=== PATIENT | female | born 1970 | race Caucasian/White ===

== ENCOUNTER 2016-11-21 21:26 | Emergency (ER) | payer BC ==
[2016-11-21] MEDS ORDERED: ASPIRIN 81 MG TABLET, CHEWABLE PO ONE (21:57)
--- NOTE | 2016-11-21 21:57 | ER Document Report ---
ED Medical Screen (RME) - General Stated Complaint: CHEST PAIN Time seen by provider: 21:54 Mode of Arrival: Wheelchair Information source: Patient Notes: 46-year-old female presents to ED for chest pain the last couple days today the pains are worse and will not go away and they're going down both shoulders. She has a history of cardiac catheter with stents 3. Her last cardiac catheter was September 2013. She states she's had one 81 mg aspirin this morning and she's had 3 nitroglycerin sprays last one was at 2030. I have greeted and performed a rapid initial assessment of this patient. A comprehensive ED assessment and evaluation of the patient, analysis of test results and completion of medical decision making process will be conducted by an additional ED providers. TRAVEL OUTSIDE OF THE [place] IN LAST 30 DAYS: No - Related Data Allergies/Adverse Reactions: atropine [Atropine] Allergy (Severe, Verified 05/25/15 12:18) Hives Past Medical History - Past Medical History Cardiac Medical History: Reports: Hx Coronary Artery Disease, Hx Heart Attack - x4, Hx Hypercholesterolemia, Hx Hypertension Pulmonary Medical History: Reports: Hx Asthma, Hx Bronchitis, Hx COPD Endocrine Medical History: Reports: Hx Diabetes Mellitus Type 2 Skin Medical History: Reports Hx Cellulitis Past Surgical History: Reports: Hx Cardiac Catheterization - stent x3 LAD, Proximal LAD, Hx Orthopedic Surgery - bilateral knee, right wrist, Hx Tonsillectomy - Immunizations Immunizations up to date: Yes Hx Diphtheria, Pertussis, Tetanus Vaccination: Yes
[2016-11-21 21:59] VITALS: BP 150/81
[2016-11-21 22:24] LABS: ABSOLUTE BASOPHILS # (AUTO) 0.1 10^3/uL (0.0-0.2); ABSOLUTE EOSINOPHILS # (AUTO) 0.1 10^3/uL (0.0-0.6); ABSOLUTE LYMPHOCYTES (AUTO) 2.5 10^3/uL (0.5-4.7); ABSOLUTE MONOCYTES (AUTO) 0.6 10^3/uL (0.1-1.4); ABSOLUTE NEUT (AUTO) 5.6 10^3/uL (1.7-8.2); EOSINOPHILS % (AUTO) 0.9 % (0-6); HEMATOCRIT 48.1 % (36.0-47.0); HEMOGLOBIN 16.5 g/dL (12.0-15.5); HGB HCT DIFFERENCE 1.4; LYMPHOCYTES % (AUTO) 28.2 % (13-45); MEAN CORPUSCULAR HEMOGLOBIN 31.5 pg (27.0-33.4); MEAN CORPUSCULAR HGB CONC 34.4 g/dL (32.0-36.0); MEAN CORPUSCULAR VOLUME 92 fl (80-97); MONOCYTES % (AUTO) 6.8 % (3-13); RED BLOOD COUNT 5.24 10^6/uL (3.72-5.28); RED CELL DISTRIBUTION WIDTH 12.9 % (11.5-14.0); SEGMENTED NEUTROPHILS % (AUTO) 63.1 % (42-78); WHITE BLOOD COUNT 8.8 10^3/uL (4.0-10.5)
[2016-11-21 22:33] LABS: PROTHROMBIN TIME 11.6 SEC (11.4-15.4)
[2016-11-21 22:34] LABS: PARTIAL THROMBOPLASTIN TIME 29.7 SEC (23.5-35.8)
[2016-11-21 22:40] LABS: ALANINE AMINOTRANSFERASE 33 U/L (9-52); ALBUMIN 4.2 g/dL (3.5-5.0); ALKALINE PHOSPHATASE 133 U/L (38-126); ANION GAP 15 (5-19); ASPARTATE AMINO TRANSFERASE 19 U/L (14-36); BILIRUBIN,DIRECT 0.2 mg/dL (0.0-0.4); BILIRUBIN,TOTAL 0.8 mg/dL (0.2-1.3); BLOOD UREA NITROGEN 11 mg/dL (7-20); CALCIUM 9.7 mg/dL (8.4-10.2); CARBON DIOXIDE 21 mmol/L (22-30); CHLORIDE 96 mmol/L (98-107); CREATINE KINASE 26 U/L (30-135); CREATININE RESULT 0.63 mg/dL (0.52-1.25); MAGNESIUM 1.6 mg/dL (1.6-2.3); POTASSIUM 4.1 mmol/L (3.6-5.0); TOTAL PROTEIN 6.8 g/dL (6.3-8.2)
[2016-11-21 22:48] LABS: GLUCOSE 531 mg/dL (75-110)
[2016-11-21 22:53] LABS: CREATINE KINASE MB < 0.22 ng/mL (<4.55); TROPONIN I < 0.012 ng/mL
--- NOTE | 2016-11-22 10:55 | EKG REPORT ---
SEVERITY:- ABNORMAL ECG - SINUS RHYTHM PROBABLE LEFT ATRIAL ABNORMALITY CONSIDER ANTEROSEPTAL INFARCT : Confirmed by: Addie Carlson 22-Nov-2016 10:54:35
== END 2016-11-21 23:25 | disposition left against medical advice (07) ==
LOC: ER 21:26
DX: R07.9 Chest pain, unspecified (principal); I25.10 Atherosclerotic heart disease of native coronary artery without angina pectoris; I25.2 Old myocardial infarction; J44.9 Chronic obstructive pulmonary disease, unspecified; I10 Essential (primary) hypertension; E11.9 Type 2 diabetes mellitus without complications; Z88.8 Allergy status to other drugs, medicaments and biological substances; Z98.61 Coronary angioplasty status; Z53.20 Procedure and treatment not carried out because of patient's decision for unspecified reasons
CPT/HCPCS: 36415; 71020; 80053; 82550; 82553; 83735; 84484; 85025; 85610; 85730; 93005; 93010; 99281

== ENCOUNTER 2017-10-09 09:14 | Emergency (ER) | payer BC ==
[2017-10-09] MEDS ORDERED: ACETAMINOPHEN 325 MG TABLET PO ONE (09:16)
--- NOTE | 2017-10-09 10:03 | ER Document Report ---
HPI - HPI Pain Level: 5 Notes: Patient is a 47-year-old female who presents the ED complaining of right distal index finger pain status post crush injury prior to arrival. Patient states that she got her finger caught in the car door. Patient states that she placed ice on it immediately. Patient has noticed some swelling and bruising to the distal finger. Patient is still able to move her finger, but is not able to flex all the way at the DIP joint due to swelling. 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 No other concerns or complaints at this time. Patient admits to smoking but denies IV drug use. Denies any headache, fever, head injury, neck pain, chest pain, palpitations, syncope, cough, shortness of breath, wheeze, dyspnea, abdominal pain, nausea/vomiting/diarrhea, urinary retention, dysuria, hematuria, numbness/ tingling, muscle paralysis/weakness, or rash. - ROS Systems Reviewed and Negative: Yes All other systems reviewed and negative - CONSTITUTIONAL Constitutional: DENIES: Fever, Chills - REPRODUCTIVE Reproductive: DENIES: : - MUSCULOSKELETAL Musculoskeletal: REPORTS: Extremity pain - right pointer finger Past Medical History - Social History Smoking Status: Current Every Day Smoker Frequency of alcohol use: Rare Drug Abuse: None Family History: CAD, CVA, DM, Hyperlipidemia, Hypertension, Malignancy Patient has suicidal ideation: No Patient has homicidal ideation: No - Past Medical History Cardiac Medical History: Reports: Hx Coronary Artery Disease, Hx Heart Attack - x6, Hx Hypercholesterolemia, Hx Hypertension Pulmonary Medical History: Reports: Hx Asthma, Hx Bronchitis, Hx COPD Endocrine Medical History: Reports: Hx Diabetes Mellitus Type 2 Renal/ Medical History: Denies: Hx Peritoneal Dialysis Skin Medical History: Reports Hx Cellulitis Past Surgical History: Reports: Hx Cardiac Catheterization - stent x3 LAD, Proximal LAD, Hx Hysterectomy, Hx Orthopedic Surgery - bilateral knee, right wrist, Hx Tonsillectomy - Immunizations Immunizations up to date: Yes Hx Diphtheria, Pertussis, Tetanus Vaccination: Yes Vertical Provider Document - CONSTITUTIONAL Agree With Documented VS: Yes Notes: PHYSICAL EXAMINATION: GENERAL: Well-appearing, well-nourished and in no acute distress. LUNGS: Breath sounds clear to auscultation bilaterally and equal. No wheezes rales or rhonchi. HEART: Regular rate and rhythm without murmurs, rubs, gallops. Musculoskeletal: Rt index: LROM to passive/active. Strength 4+/5. + ecchymosis noted distal rosalinda/posterior. No bruising under the nail noted. No laceration or opening to the skin. + tenderness to the distal phalange as well as the DIP. No other tenderness to the hand. No other deficits noted. N/V intact distal. Extremities: No cyanosis, clubbing, or edema b/l. Peripheral pulses 2+. Capillary refill less than 3 seconds. NEUROLOGICAL: Normal speech, normal gait. Normal sensory, motor exams PSYCH: Normal mood, normal affect. SKIN: Warm, Dry, normal turgor, no rashes or lesions noted. - INFECTION CONTROL TRAVEL OUTSIDE OF THE [place] IN LAST 30 DAYS: No - RESPIRATORY O2 Sat by Pulse Oximetry: 98 Course - Re-evaluation Re-evalutation: 10/09/17 10:30 Patient is an afebrile, well-hydrated, 47-year-old female who presents to the ED with a contusion to her right index finger. Vitals are stable. PE is otherwise unremarkable for any neurovascular compromise, obvious tendon/ ligament rupture, obvious fracture/dislocation, septic joint. X-ray was unremarkable for any acute pathology. Metal finger splint applied today. Conservative measures for symptoms. Patient had Tylenol upon arrival. Recheck with your PCM in 3-5 days. Consider consult with orthopedics/physical therapy. Return to the ED with any worsening/concerning symptoms otherwise as reviewed discharge. Patient is in agreement. - Vital Signs Vital signs: Temp Pulse Resp BP Pulse Ox 97.6 F 79 16 135/89 H 98 10/09/17 09:28 10/09/17 09:28 10/09/17 09:28 10/09/17 09:28 10/09/17 09:28 Discharge - Discharge Clinical Impression: Finger contusion Qualifiers: Encounter type: initial encounter Finger: index finger Damage to nail status: without damage Laterality: right Qualified Code(s): S60.021A - Contusion of right index finger without damage to nail, initial encounter Condition: Stable Disposition: HOME, SELF-CARE Instructions: Contusion ([facility]) Additional Instructions: Rest, Ice, Compression, Elevation Use splint as directed Tylenol/ibuprofen as needed Light stretches daily Strength exercises as able Moist heat and massage may help F/u with your PCP in 3-5 days for a recheck Consider consult(s) with Orthopedics/physical therapy for ongoing/worsening symptoms Return to the ED with any worsening symptoms and/or development of fever, headache, chest pain, palpitations, syncope, shortness of breath, trouble breathing, abdominal pain, n/v/d, muscle weakness/paralysis, numbness/tingling, swelling, redness, or other worsening symptoms that are concerning to you. Forms: Elevated Blood Pressure Referrals: DENY AMAYA MD [Primary Care Provider] - Follow up as needed [facility] [Provider Group] - Follow up as needed
--- NOTE | 2017-10-09 10:17 | RADIOLOGY REPORT (SQ) ---
EXAM DESCRIPTION: HAND RIGHT 3 VIEWS COMPLETED DATE/TIME: 10/09/2017 10:02 am REASON FOR STUDY: 2nd digit pain s/p crush injury COMPARISON: None. EXAM PARAMETERS: NUMBER OF VIEWS: Three views. TECHNIQUE: AP, lateral and oblique radiographic images acquired of the right hand. LIMITATIONS: None. FINDINGS: MINERALIZATION: Normal. BONES: No acute fracture or dislocation. No worrisome bone lesions. JOINTS: No effusions. SOFT TISSUES: No soft tissue swelling. No foreign body. OTHER: No other significant finding. IMPRESSION: NEGATIVE STUDY OF THE RIGHT HAND. NO RADIOGRAPHIC EVIDENCE OF ACUTE INJURY. TECHNICAL DOCUMENTATION: JOB ID: [id number] [employer]- All Rights Reserved
[2017-10-09 11:04] VITALS: BP 113/77
== END 2017-10-09 11:05 | disposition home or self-care (01) ==
LOC: ER 09:14
DX: S60.021A Contusion of right index finger without damage to nail, initial encounter (principal); W23.0XXA Caught, crushed, jammed, or pinched between moving objects, initial encounter; Y93.89 Activity, other specified; I25.10 Atherosclerotic heart disease of native coronary artery without angina pectoris; I25.2 Old myocardial infarction; Z79.01 Long term (current) use of anticoagulants; F17.200 Nicotine dependence, unspecified, uncomplicated; I10 Essential (primary) hypertension; J44.9 Chronic obstructive pulmonary disease, unspecified; E11.9 Type 2 diabetes mellitus without complications; Z95.5 Presence of coronary angioplasty implant and graft
CPT/HCPCS: 99283

== ENCOUNTER 2018-04-04 22:23 | Emergency (ER) | payer BC ==
[2018-04-04 22:28] VITALS: BP 166/85
[2018-04-04] MEDS ORDERED: CLINDAMYCIN HCL 150 MG CAPSULE PO ONE (22:59)
--- NOTE | 2018-04-04 23:04 | ER Document Report ---
ED General - General Chief Complaint: Wound Infection Stated Complaint: ABSCESS Time Seen by Provider: 04/04/18 22:52 Notes: Patient is a 47-year-old female who presents with complaint of a blister that has scabbed become infected. Patient says that she gets small of blood blisters over her hands that she has had off and on ever since she was on blood thinners. She says is been ongoing for 7 years. She says that she was recently taken off blood thinners now and is on aspirin but still occasionally gets some. She does never get any oral lesions. Said when the blood blister started open and scabbed and then now she thinks may be infected. She said a few days ago she did have worsening erythema but seems to improving slightly. She says that after ruptured she is placing Neosporin and tea tree oil on it. She said since and it has just scabbed and is not significantly. Blisters over the left hand. No fevers. No purulent discharge. TRAVEL OUTSIDE OF THE [place] IN LAST 30 DAYS: No - Related Data Allergies/Adverse Reactions: atropine [Atropine] Allergy (Severe, Verified 05/25/15 12:18) Hives Past Medical History - Social History Smoking Status: Current Every Day Smoker Chew tobacco use (# tins/day): No Frequency of alcohol use: None Drug Abuse: None Family History: CAD, CVA, DM, Hyperlipidemia, Hypertension, Malignancy Patient has suicidal ideation: No Patient has homicidal ideation: No - Past Medical History Cardiac Medical History: Reports: Hx Coronary Artery Disease, Hx Heart Attack - x6, Hx Hypercholesterolemia, Hx Hypertension Pulmonary Medical History: Reports: Hx Asthma, Hx Bronchitis, Hx COPD Endocrine Medical History: Reports: Hx Diabetes Mellitus Type 2 Renal/ Medical History: Denies: Hx Peritoneal Dialysis Skin Medical History: Reports Hx Cellulitis Past Surgical History: Reports: Hx Cardiac Catheterization - stent x3 LAD, Proximal LAD, Hx Hysterectomy, Hx Orthopedic Surgery - bilateral knee, right wrist, Hx Tonsillectomy - Immunizations Immunizations up to date: Yes Hx Diphtheria, Pertussis, Tetanus Vaccination: Yes Review of Systems - Review of Systems Notes: My Normal Review Basic REVIEW OF SYSTEMS: CONSTITUTIONAL : Denies fever, chills, or sweats. Denies recent illness. EENT: Denies eye, ear, throat, or mouth pain or symptoms. Denies nasal or sinus congestion. MUSCULOSKELETAL: Denies neck or back pain or joint pain or swelling. SKIN: Infected blister. NEUROLOGICAL: Denies sensory or motor loss. ALL OTHER SYSTEMS REVIEWED AND NEGATIVE. Physical Exam - Vital signs Vitals: Temp Pulse Resp BP Pulse Ox 98.1 F 81 18 166/85 H 97 04/04/18 22:27 04/04/18 22:27 04/04/18 22:27 04/04/18 22:27 04/04/18 22:27 - Notes Notes: General Appearance: Well nourished, alert, cooperative, no acute distress, no obvious discomfort. Vitals: reviewed, See vital signs table. Mouth: No decreasd moisture Extremities: no swelling or tenderness in the extremities except for scabbed over lesion small amount of surrounding erythema on the radial aspect the base of the right thumb and dorsum of hand. Lesion is not fluctuant. It is. To have granulated and scabbed. Skin: warm, dry, appropriate color, no rash. Several small red palpable purpuric type lesions on dorsum of hands that are palpable and non-blanchable. No oral lesions. Neuro: speech clear, oriented x 3, normal affect, responds appropriately to questions. Course - Re-evaluation Re-evalutation: 04/04/18 23:08 Patient has what appears to be a lesion that turned into an open sore which has been treated multiple times with bacitracin and tea tree oil and other things have caused it to granulate in scab and not heal properly. Does have some surrounding erythema. Probably is a small amount of so she is secondary infection. I will place her on antibiotics and I talked her length about avoiding any other chemicals on other than just normal soap and water. Encourage her follow-up closely with primary care doctor. Also talked her length about small red lesions on her hands. I informed her that I am not convinced this is from blood thinners alone however the patient said she has been having them for 7 years ever since she had blood thinners. She says that her doctor sure if that that is what these lesions are. I informed her if they do an increase in number or size and she should talk to her doctor about potentially following up with a clinical sociologist. Patient agrees with plan and will be discharged home. Dictation of this chart was performed using voice recognition software; therefore, there may be some unintended grammatical errors. - Vital Signs Vital signs: Temp Pulse Resp BP Pulse Ox 98.1 F 81 18 166/85 H 97 04/04/18 22:27 04/04/18 22:27 04/04/18 22:27 04/04/18 22:27 04/04/18 22:27 Discharge - Discharge Clinical Impression: Wound infection Condition: Good Disposition: HOME, SELF-CARE Additional Instructions: Please clean the affected area with soap and water daily. Refrain from using peroxide, Neosporin, or tea tree oil for now so that the wound has time to epithelialize. Follow up with your doctor in 2-3 days for reevaluation. return to the ER immediately if you develop spreading redness, fevers, increasing swelling, or have any further concerns. Prescriptions: Clindamycin HCl 300 mg PO ASDIR #56 capsule Referrals: DENY AMAYA MD [Primary Care Provider] - 04/06/18
== END 2018-04-04 23:25 | disposition home or self-care (01) ==
LOC: ER 22:23
DX: S60.522A Blister (nonthermal) of left hand, initial encounter (principal); L08.9 Local infection of the skin and subcutaneous tissue, unspecified; X58.XXXA Exposure to other specified factors, initial encounter; E11.9 Type 2 diabetes mellitus without complications; F17.200 Nicotine dependence, unspecified, uncomplicated; I25.10 Atherosclerotic heart disease of native coronary artery without angina pectoris; I10 Essential (primary) hypertension; I25.2 Old myocardial infarction; J44.9 Chronic obstructive pulmonary disease, unspecified; Z95.5 Presence of coronary angioplasty implant and graft; Z79.82 Long term (current) use of aspirin; Z88.8 Allergy status to other drugs, medicaments and biological substances
CPT/HCPCS: 99282

== ENCOUNTER 2018-04-22 06:49 | Emergency (ER) | payer BC ==
--- NOTE | 2018-04-22 07:26 | RADIOLOGY REPORT (SQ) ---
EXAM DESCRIPTION: XR ANKLE 2 VIEWS COMPLETED DATE/TME: 04/22/2018 00:00 CLINICAL HISTORY: 47 years Female, tripped and twisted r ankle COMPARISON: None. Findings: Mild osteoarthritis involves the medial malleolus and fifth tarsometatarsal joints. Bones, joints, and soft tissues of the RIGHT XR ANKLE 2 VIEWS appear otherwise intact. IMPRESSION: No acute findings.
--- NOTE | 2018-04-22 07:52 | ER Document Report ---
ED General - General Chief Complaint: Ankle Injury Stated Complaint: ANKLE PAIN Time Seen by Provider: 04/22/18 07:40 TRAVEL OUTSIDE OF THE [place] IN LAST 30 DAYS: No - HPI Patient complains to provider of: foot and ankle pain Notes: 47-year-old female presents with right ankle and foot pain 10/10 sharp in nature without radiation. Patient was at a friend's house last night was walking stepped in some sort of whole in her lawn and forcefully everted her right foot. Patient has pain over her lateral malleolus along with inferior aspect of foot and midfoot. Nothing is made the pain better or worse - Related Data Allergies/Adverse Reactions: atropine [Atropine] Allergy (Severe, Verified 05/25/15 12:18) Hives Past Medical History - Social History Smoking Status: Current Every Day Smoker Chew tobacco use (# tins/day): No Frequency of alcohol use: None Drug Abuse: None Family History: CAD, CVA, DM, Hyperlipidemia, Hypertension, Malignancy Patient has suicidal ideation: No Patient has homicidal ideation: No - Past Medical History Cardiac Medical History: Reports: Hx Coronary Artery Disease, Hx Heart Attack - x6, Hx Hypercholesterolemia, Hx Hypertension Pulmonary Medical History: Reports: Hx Asthma, Hx Bronchitis, Hx COPD Endocrine Medical History: Reports: Hx Diabetes Mellitus Type 2 Renal/ Medical History: Denies: Hx Peritoneal Dialysis Skin Medical History: Reports Hx Cellulitis Past Surgical History: Reports: Hx Cardiac Catheterization - stent x3 LAD, Proximal LAD, Hx Hysterectomy, Hx Orthopedic Surgery - bilateral knee, right wrist, Hx Tonsillectomy - Immunizations Immunizations up to date: Yes Hx Diphtheria, Pertussis, Tetanus Vaccination: Yes Review of Systems - Review of Systems Notes: REVIEW OF SYSTEMS: CONSTITUTIONAL: -fevers, -chills EENT: -eye pain, -difficulty swallowing, -nasal congestion CARDIOVASCULAR: -chest pain, -syncope. RESPIRATORY: -cough, -SOB GASTROINTESTINAL: -abdominal pain, -nausea, -vomiting, -diarrhea GENITOURINARY: -dysuria, -hematuria MUSCULOSKELETAL: -back pain, -neck pain SKIN: -rash or skin lesions. HEMATOLOGIC: -easy bruising or bleeding. LYMPHATIC: -swollen, enlarged glands. NEUROLOGICAL: -altered mental status or loss of consciousness, -headache, - neurologic symptoms PSYCHIATRIC: -anxiety, -depression. ALL OTHER SYSTEMS REVIEWED AND NEGATIVE. Physical Exam - Vital signs Vitals: Temp Pulse Resp BP Pulse Ox 97.7 F 94 16 129/77 H 96 04/22/18 06:53 04/22/18 06:53 04/22/18 06:53 04/22/18 06:53 04/22/18 06:53 - Notes Notes: PHYSICAL EXAMINATION: GENERAL: Well-appearing, well-nourished and in no acute distress. HEAD: Atraumatic, normocephalic. EYES: Pupils equal round and reactive to light, extraocular movements intact, sclera anicteric, conjunctiva are normal. ENT: nares patent, oropharynx clear without exudates. Moist mucous membranes. NECK: Normal range of motion, supple without lymphadenopathy LUNGS: Breath sounds clear to auscultation bilaterally and equal. No wheezes rales or rhonchi. HEART: Regular rate and rhythm without murmurs ABDOMEN: Soft, nontender, normoactive bowel sounds. No guarding, no rebound. No masses appreciated. EXTREMITIES: Exquisite tenderness over lateral malleolus right ankle. No obvious signs of trauma or deformity. NEUROLOGICAL: Cranial nerves grossly intact. Normal speech, normal gait. Normal sensory and motor exams. PSYCH: Normal mood, normal affect. SKIN: Warm, Dry, normal turgor, no rashes or lesions noted. Course - Re-evaluation Re-evalutation: 04/22/18 08:27 Fortunately female presents after mild trauma last night. Apparent ankle sprain /foot sprain. Patient placed in splint for comfort follow-up at family doctor - Vital Signs Vital signs: Temp Pulse Resp BP Pulse Ox 97.7 F 94 18 129/77 H 96 04/22/18 06:53 04/22/18 06:53 04/22/18 07:30 04/22/18 06:53 04/22/18 06:53 Discharge - Discharge Clinical Impression: Ankle sprain Qualifiers: Encounter type: initial encounter Involved ligament of ankle: unspecified ligament Laterality: right Qualified Code(s): S93.401A - Sprain of unspecified ligament of right ankle, initial encounter Condition: Stable Disposition: HOME, SELF-CARE Instructions: Sprained Ankle ([facility]) Referrals: DENY AMAYA MD [Primary Care Provider] - Follow up as needed
--- NOTE | 2018-04-22 08:10 | RADIOLOGY REPORT (SQ) ---
EXAM DESCRIPTION: FOOT RIGHT 2 VIEWS COMPLETED DATE/TIME: 04/22/2018 8:00 am REASON FOR STUDY: paion twisted right ankle last night, pain over lateral right ankle and lateral ri ght foot COMPARISON: None. NUMBER OF VIEWS: Three views. TECHNIQUE: AP, lateral and oblique radiographic images acquired of the right foot. LIMITATIONS: None. FINDINGS: MINERALIZATION: Normal. BONES: No acute fracture or dislocation. No worrisome bone lesions. JOINTS: No effusions. SOFT TISSUES: Lateral right ankle and foot soft tissue swelling. No foreign body. OTHER: No other significant finding. IMPRESSION: No acute fracture TECHNICAL DOCUMENTATION: JOB ID: [id number] [employer]- All Rights Reserved Reading location - IP/workstation name: [email or web address]
[2018-04-22 10:25] VITALS: BP 129/81
== END 2018-04-22 10:26 | disposition home or self-care (01) ==
LOC: ER 06:49
DX: S93.401A Sprain of unspecified ligament of right ankle, initial encounter (principal); F17.200 Nicotine dependence, unspecified, uncomplicated; W17.2XXA Fall into hole, initial encounter; Y92.007 Garden or yard of unspecified non-institutional (private) residence as the place of occurrence of the external cause; J44.9 Chronic obstructive pulmonary disease, unspecified; E11.9 Type 2 diabetes mellitus without complications; E78.00 Pure hypercholesterolemia, unspecified; I10 Essential (primary) hypertension; I25.2 Old myocardial infarction; Z90.710 Acquired absence of both cervix and uterus
CPT/HCPCS: 99283